=== PATIENT | male | born 1990 | race Caucasian/White ===

== ENCOUNTER 2022-11-29 00:03 | Emergency (ER) | payer MEDICAID ==
[~2022-11-29] VITALS: Ht 170.2 cm; Wt 81.6 kg
[2022-11-29 00:15] VITALS: BP_SYST 138
--- NOTE | 2022-11-29 00:20 | NUR ---
Patient triaged and placed in waiting room. VSS and patient appears in no acute distress at this time. Accompanied by FRIEND, awaiting available bed, and MD notified of need for MSE.
--- NOTE | 2022-11-29 01:03 | NUR ---
Patient to ER bed 05 to gown for evaluation. Side rails up.
[2022-11-29] MEDS ORDERED: DIPHTH,PERTUSS(ACELL),TET VAC 0.5 ML VIAL (Tdap) I.M. ONE (01:30)
[2022-11-29] MEDS ORDERED: LIDOCAINE 2%, 20 ML MDV INJ ONE (01:30)
--- NOTE | 2022-11-29 01:34 | NUR ---
REPORT GIVEN TO ANNABELLA MILLER.
[2022-11-29] MEDS ORDERED: BACI15OI13 TP (02:17)
[2022-11-29] MEDS ORDERED: BACITRACIN ZINC 15 GM TOPICAL OINTMENT TP ONE (02:30)
[2022-11-29] MEDS ORDERED: BACITRACIN 1 GM OINT TP ONE (02:50)
== END 2022-11-29 03:10 | disposition home or self-care (01) ==
LOC: SED 00:03
DX: S01.81XA Laceration without foreign body of other part of head, initial encounter (principal); Z79.899 Other long term (current) drug therapy; W01.0XXA Fall on same level from slipping, tripping and stumbling without subsequent striking against object, initial encounter; Y93.89 Activity, other specified; Y92.89 Other specified places as the place of occurrence of the external cause; Y99.8 Other external cause status
CPT/HCPCS: 99283; 90715; 90471; 12013; J2001

== ENCOUNTER 2022-12-05 14:46 | Emergency (ER) | payer MEDICAID ==
[~2022-12-05] VITALS: Ht 170.2 cm; Wt 74.8 kg
[~2022-12-05 14:46] MED LIST: BACI15OI13 TP
[2022-12-05 15:00] VITALS: BP_SYST 115
[2022-12-05 16:37] VITALS: BP_SYST 138
== END 2022-12-05 16:36 | disposition home or self-care (01) ==
LOC: SED 14:46
DX: Z48.02 Encounter for removal of sutures (principal)
CPT/HCPCS: 99281